=== PATIENT | male | born 1955 | race Caucasian/White ===

== ENCOUNTER 2025-03-04 09:40 | Outpatient (CLI) | payer MEDICARE ==
[2025-03-04 11:38] LABS: Estimated GFR - POC 72.0
[2025-03-04] MEDS ORDERED: Iopamidol 300 61% 100 ML VIAL FS ONE (14:08)
== END 2025-03-04 09:41 | disposition home or self-care (01) ==
LOC: CSHCT 09:40
PROVIDERS: ATTEND Urology
DX: C61 Malignant neoplasm of prostate (principal)
CPT/HCPCS: 74178; 82565; Q9967